=== PATIENT | male | born 1940 | race Caucasian/White ===

== ENCOUNTER 2018-04-15 15:36 | Outpatient (CLI) | payer MEDICARE | END 2018-04-15 15:37 | disposition home or self-care (01) | LOC: BICRAD 15:36 | PROVIDERS: ATTEND Internal Medicine Gastroenterology | DX: R63.4 Abnormal weight loss (principal); R05 Cough; R13.10 Dysphagia, unspecified; R91.1 Solitary pulmonary nodule | CPT/HCPCS: 71046 ==

== ENCOUNTER 2018-04-19 08:14 | Outpatient (CLI) | payer MEDICARE ==
--- NOTE | 2018-04-19 10:16 | RAD ---
PROCEDURE BARIUM SWALLOW: COMPARISON: CTA chest 08/15/16. HISTORY: Difficulty swallowing and sensation of food betting stuck. EXPOSURE: 3.2 minutes of fluoroscopic time and 7.248 uGy^cm2. FINDINGS: A double-contrast barium swallow is performed with air and barium. A esl professor radiograph is performed s howing a nodular opacity projecting over the mid portion of the right thorax. This is stable compare d to the nodular opacity seen on prior CT. The patient is status post CABG. A pacemaker is seen wit h its leads in the right atrium and ventricle. Esophageal mobility is delayed with multiple tertiary contractions consistent with presbyesophagus. No esophageal stricture is seen. A 13 mm barium tablet was given to the patient. This transiently h sara up in the lower esophagus but eventually passed with multiple sips of water. No gastroesophageal reflux was seen during the examination. No hiatal hernia is present. IMPRESSION: 1. Presbyesophagus. 2. Stable nodular opacity projecting over the right thorax. POS: [facility]
== END 2018-04-19 08:15 | disposition home or self-care (01) ==
LOC: RAD 08:14
PROVIDERS: ATTEND Internal Medicine Gastroenterology
DX: R13.10 Dysphagia, unspecified (principal); R05 Cough; R63.4 Abnormal weight loss; K22.8 Other specified diseases of esophagus; R91.8 Other nonspecific abnormal finding of lung field
CPT/HCPCS: 74220

== ENCOUNTER 2018-05-12 10:17 | Day surgery (SDC) | payer MEDICARE ==
[2018-05-11 10:53] VITALS: BMI 17.3
[2018-05-12] MEDS ORDERED: PROPOFOL 200 MG/20 ML VIAL ONE (13:23)
--- NOTE | 2018-05-12 21:30 | OP ---
DATE OF OPERATION: 05/12/2018 PREPROCEDURE DIAGNOSES: Dysphagia, cervical, solids greater than liquids with 20 pound weight loss, esophagram nondiagnostic. Chest x-ray showed a mass in the lung which has been followed for several years which was felt to be benign. He has an AICD in place. He has seen Cardiology and had clearanc e for this procedure. POSTOPERATIVE DIAGNOSES: 1. He has a mass in his throat that seemingly arising from the vallecula and epiglottis and extendin g down to the vocal cords. 2. This was not biopsied secondary to concern for airway compromise. 3. Normal esophagus. 4. Normal stomach and duodenum. RECOMMENDATIONS: ENT evaluation MEAGHAN. Offered the patient a PEG tube placement for procedure secondary to weight loss, but he refused. He will likely end up needing a PEG tube for therapy of this. We will wait until he talks to ENT and ge ts a diagnosis made and treatment plan outlined. ANESTHESIA: TIVA. PROCEDURE IN DETAIL: After the patient was informed of the risks, benefits and possible complication s of endoscopy including perforation, bleeding, reactions to medication and aspiration, informed cons ent was obtained. The patient was brought to the endoscopy suite where he was sedated in a gradual f ashion. Once he was comfortable, a bite block was placed in the incisural orifice. The neck exam wa s examined and no adenopathy was found on the anterior, posterior cervical chains, supraclavicular ar eas or submental or mandibular nodes. The endoscope was then advanced through the bite block and the n into the throat, irregular appearance to the epiglottis was seen. This was passed in the upper eso phagus, was evaluated which was normal as was the middle of the distal and the stomach, there was a s mall hiatal hernia. On retroflexed views, duodenum was normal. The scope was removed. Attention wa s turned to the pharyngeal area, there seemed to be a mass here involving the vocal cords, epiglottis and the piriform sinus. It is difficult to tell which side, I think that would be the right. The s cope was removed and an appointment will be made with ENT before he leaves the hospital today.
== END 2018-05-12 16:30 | disposition home or self-care (01) ==
LOC: SDC 10:17
PROVIDERS: ATTEND Internal Medicine Gastroenterology
PROC: 0DJ08ZZ Inspection of Upper Intestinal Tract, Via Natural or Artificial Opening Endoscopic (ICD-10-PCS; principal; 2018-05-12)
DX: J39.2 Other diseases of pharynx (principal); F17.200 Nicotine dependence, unspecified, uncomplicated; Z88.5 Allergy status to narcotic agent; Z79.899 Other long term (current) drug therapy; Z79.82 Long term (current) use of aspirin; Z88.8 Allergy status to other drugs, medicaments and biological substances
CPT/HCPCS: J2704

== ENCOUNTER 2018-06-03 11:31 | Outpatient (CLI) | payer MEDICARE ==
--- NOTE | 2018-06-03 14:34 | PET ---
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 COMPARISON: 09/15/15. TECHNIQUE: IV injection F-18 Fluorodeoxyglucose (FDG) dose: 11.1 mCi PET and attenuation-correction CT performed from skull base to proximal thighs. FINDINGS: SUV (standard uptake value) numbers given are maximum SUV's: There were hypermetabolic lymph nodes in various areas in 2015. Now, those have resolved, and there a re different areas of hypermetabolic lymph nodes. An approximately 1.5 x 1.5 cm left axillary lymph node with SUV of 3.7. Conglomeration of matted right cervical lymph nodes, Levels III and possibly IV, anterior to the righ t internal jugular vein, with SUV of 13.1. Moderately large, diffuse, infiltrative soft tissue mass throughout the entire supraglottic larynx wi th SUV of 12.8, representing the primary neoplasm site. No hypermetabolic activity identified within the thoracic cavity. No FDG-avid retroperitoneal lymph n odes. Abutting the anterior aspect of the left anterior acetabulum, there is an approximately 2 x 1.5 cm ex ternal iliac chain lymph node with SUV of 4.3. Slightly posterior to that, abutting the medial edge of the left anterior acetabulum, there is a smal ler left iliac chain lymph node, abutting the anterior edge of the left obturator internus muscle, wi th SUV of 6.0. There is a 3.5 cm infrarenal fusiform abdominal aortic aneurysm. There is a suture line around a loop of bowel, probably hepatic flexure of colon, in the right side o f the abdominal cavity. There is increased FDG uptake in that area, SUV of 5.6. Contiguous with this, there is also increased uptake throughout the transverse colon, SUV 4.9. It is uncertain whether or not these represent malignant activity. Recommend correlation with results of colonoscopy. IMPRESSION: 1. Very FDG-avid large supraglottic primary malignant neoplastic tumor, presumably squamous cell car cinoma. 2. Malignant right cervical lymphadenopathy at Level III. 3. Left axillary lymphadenopathy. 4. Two hypermetabolic left external iliac chain lymph nodes. 5. FDG avidity in the ascending colon and transverse colon, nonspecific. Recommend correlation with results of colonoscopy. 6. Infrarenal abdominal aortic aneurysm. JN R POS: [facility]
== END 2018-06-03 11:32 | disposition home or self-care (01) ==
LOC: PET 11:31
PROVIDERS: ATTEND Internal Medicine Hematology & Oncology
DX: C76.0 Malignant neoplasm of head, face and neck (principal); C32.1 Malignant neoplasm of supraglottis; R59.0 Localized enlarged lymph nodes; I71.4 Abdominal aortic aneurysm, without rupture
CPT/HCPCS: 78815; A9552

== ENCOUNTER 2018-06-11 11:29 | Observation (INO) | payer MEDICARE ==
[2018-06-10 15:08] VITALS: BMI 18.3
[2018-06-11] MEDS ORDERED: Bupivacaine/Epinephrine 0.25% 30 ML VIAL ONE (12:43)
[2018-06-11] MEDS ORDERED: Lidocaine 2% 10 ML INJ ONE (12:43)
[2018-06-11] MEDS ORDERED: CEFAZOLIN/Water 2 GM/20 ML SYRINGE ONE (13:00)
[2018-06-11] MEDS ORDERED: Fentanyl 100 MCG/2 ML VIAL ONE (13:12)
[2018-06-11] MEDS ORDERED: Morphine Sulfate 2 MG/ML SYRINGE SLOW IVP PRN (14:03)
[2018-06-11] MEDS ORDERED: Ondansetron HCl/PF 4 MG/2 ML Vial IVP PRN ×2 (14:03→15:46)
[2018-06-11] MEDS ORDERED: Promethazine HCl 25 MG/ML VIAL SLOW IVP PRN (14:03)
[2018-06-11] MEDS ORDERED: Promethazine HCl 25 MG/ML VIAL IM PRN ×2 (14:03→15:46)
[2018-06-11] MEDS ORDERED: Morphine 4 MG/ML VIAL ONE (14:26)
[2018-06-11] MEDS ORDERED: PROPOFOL 200 MG/20 ML VIAL ONE (14:34)
--- NOTE | 2018-06-11 14:45 | RAD ---
CHEST 1 VIEW: HISTORY: MediPort insertion. COMPARISON: Radiograph 04/23/18. FINDINGS: Mildly increased interstitial markings and edema. Port catheter is in place without complication wit h tip in good position. Calcified granuloma right mid lung. IMPRESSION: Uncomplicated placement of port catheter. POS: [facility]
[2018-06-11] MEDS ORDERED: hydrALAZINE 20 MG/ML VIAL SLOW IVP PRN (15:46)
[2018-06-11] MEDS ORDERED: Dextrose 50% Abboject 50 ML SYRINGE SLOW IVP PRN (15:46)
[2018-06-11] MEDS ORDERED: HYDROcodone/Acetaminophen 10/325 mg Tablet PO PRN (15:46)
[2018-06-11] MEDS ORDERED: Dextrose 5% in Water 1,000 ML IV PRN (15:46)
[2018-06-11] MEDS ORDERED: Lisinopril 20 MG TAB PO SCH (16:45)
[2018-06-11] MEDS: Lactated Ringer's 1,000 ML IV SCH (16:49)
[2018-06-11] MEDS: Carvedilol 25 MG TAB PO SCH (16:50)
[2018-06-11] MEDS ORDERED: Carvedilol 3.125 MG TAB PO SCH (17:00)
[2018-06-11] MEDS: Hydrocodone-Acetamin 15 ML UDCUP PO PRN (18:17)
[2018-06-11] MEDS: Furosemide 20 MG TAB PO SCH (20:25)
[2018-06-11] MEDS: Famotidine 20 MG TAB PO SCH (20:25)
[2018-06-11] MEDS ORDERED: Pravastatin Sodium 40 MG TAB PO SCH (21:00)
[2018-06-11] MEDS: Famotidine/PF 20 mg/2ml Vial SLOW IVP SCH (21:34)
[2018-06-12] MEDS: Hydrocodone-Acetamin 15 ML UDCUP PO PRN (00:38)
[2018-06-12] MEDS: Lactated Ringer's 1,000 ML IV SCH (00:39)
[2018-06-12 07:52] VITALS: TEMP 97.6
[2018-06-12] MEDS: Famotidine 20 MG TAB PO SCH (08:07)
[2018-06-12] MEDS: Carvedilol 25 MG TAB PO SCH (08:07)
[2018-06-12] MEDS: Furosemide 20 MG TAB PO SCH (08:07)
[2018-06-12 08:08] VITALS: BP 180/75
[2018-06-12] MEDS: Famotidine/PF 20 mg/2ml Vial SLOW IVP SCH (08:08)
[2018-06-12] MEDS ORDERED: Lisinopril 20 MG TAB PO SCH (09:00)
[2018-06-12] MEDS ORDERED: Potassium Chloride 20 MEQ TAB PO SCH (09:00)
--- NOTE | 2018-06-12 13:01 | DIS ---
DATE OF ADMISSION: 06/11/2018 DATE OF DISCHARGE: 06/12/2018 ADMITTING DIAGNOSES: Head and neck cancer, protein-calorie malnutrition. PROCEDURES: MediPort and PEG tube by Dr. Miranda without complication. CONDITION AT DISCHARGE: Improved. STAFF: Dr. Robin Miranda DISPOSITION: Home. Prescription for Zofran sent to [facility] on . HOSPITAL COURSE: On postop day 1, the patient is doing well. His PEG tube was loosened. Instructio ns were given to the and him. He is discharged home to follow up with me in 2 weeks.
--- NOTE | 2018-06-14 15:37 | OP ---
DATE OF PROCEDURE: 06/11/2018 PREOPERATIVE DIAGNOSES: Head and neck cancer, protein calorie malnutrition. POSTOPERATIVE DIAGNOSES: Head and neck cancer, protein calorie malnutrition. PROCEDURE: 1. Tunnel ____ subcutaneous port (MediPort). 2. Percutaneous endoscopic gastrostomy tube (PEG tube) with EGD guidance. SURGEON: Dr. Robin Miranda ANESTHESIA: General. ESTIMATED BLOOD LOSS: Minimal. COMPLICATIONS: None. SPECIMEN: None. TECHNIQUE: The patient was taken to the operating room, placed supine on the table. After general a nesthetic was obtained, EGD scope was passed into the esophagus, stomach to the level of duodenum wit hout obstruction or pathology. There was no resistance to passage in the oropharynx where his known cancer was. A skin wheal was raised in the left upper quadrant after the stomach was fully inflated, the light from the EGD scope can be seen through the skin. Introducer needle is placed through a 1 cm incision made in the left upper quadrant into the stomach, a wire was passed. The wire snared fro m the scope brought out through the mouth, connected to the PEG. The PEG is pulled from the orophary nx, esophagus, stomach out this small incision. It is held to the abdominal wall using closed connec tor. It is cut and the [employer] adaptor was placed. Antibiotic ointment placed around the exi t site as well as sterile dressings. The bilateral neck and chest is prepped and draped in a sterile fashion. Local anesthetic infiltrate d over the right internal jugular vein. Internal jugular vein came using a 20 gauge finder needle fo llowed by a Seldinger needle. Wire was passed into the superior vena cava under fluoroscopic guidanc e. A small meño was made at the wire site a separate 3-cm incision was made in the right upper chest . Subcutaneous pocket made below the lower incision. Tubing for the MediPort tunneled from the infe rior to superior incision and sheath was placed over the wire into the vena cava under fluoroscopy gu idajared. Dilator and wire removed. The EndoCatch straight into the sheath and the sheath is peeled a way. The tip of the catheter is at the atriocaval junction. MediPort tubing is cut to fit the MediP ort at the lower incision, connected to the MediPort which was sewn to the chest wall in the subcutan eous pocket using Prolene. MediPort flushes and draws blood without difficulties flushed with a hepa rin flush. The wounds are irrigated and closed using 3-0 Vicryl, 4-0 Monocryl, and Dermabond. The p atient went to recovery in stable condition. All instrument counts, needle counts, lap counts are co rrect.
== END 2018-06-12 12:00 | disposition home or self-care (01) ==
LOC: SDC 11:29 → SURG A 15:19
PROVIDERS: ADMIT Surgery; ATTEND Surgery
PROC: 0DH63UZ Insertion of Feeding Device into Stomach, Percutaneous Approach (ICD-10-PCS; principal; 2018-06-11)
PROC: 0JH63WZ Insertion of Totally Implantable Vascular Access Device into Chest Subcutaneous Tissue and Fascia, Percutaneous Approach (ICD-10-PCS; 2018-06-11)
DX: E46 Unspecified protein-calorie malnutrition (principal); C76.0 Malignant neoplasm of head, face and neck; Z68.1 Body mass index [BMI] 19.9 or less, adult; Z79.82 Long term (current) use of aspirin; Z79.899 Other long term (current) drug therapy; Z88.8 Allergy status to other drugs, medicaments and biological substances
CPT/HCPCS: 36561; 43246; 71045; 77386 ×4; 80053; 82248; 83615; 83735; 84100; 84550; 96374 ×2; C1788; G0378; J1642; J2270; J2704; J3010

== ENCOUNTER 2018-09-07 13:04 | Outpatient (CLI) | payer MEDICARE ==
--- NOTE | 2018-09-08 10:52 | PET ---
PET CT FROM APEX OF SKULL THROUGH MID THIGH: COMPARISON: 06/03/18. HISTORY: Malignant neoplasm of the supraglottis. TECHNIQUE: A PET CT was performed from the apex of skull through the mid thigh after administration of 11.6 mCi F18-FDG. FINDINGS: The previously seen hypermetabolic activity in the supraglottic airway has decreased. The max SUV perico ue is now 4.3. The previously seen hypermetabolic activity in the right aspect of the neck which represented metasta tic adenopathy is no longer present. No enlarged lymph nodes are seen in either side of the neck on t he limited noncontrast examination. A new right-sided MediPort is seen with its tip in the superior vena cava. Calcifications are seen in the carotid arteries. No hypermetabolic activity is seen in either axilla. There is a hypermetabolic left pelvic lymph node near the internal inguinal ring with a maximum SUV value of 2.9. Previously, there were two hypermet abolic enlarged left pelvic lymph nodes. There is a stable right lung mass which does not demonstrate hypermetabolic activity. No suspicious areas of hypermetabolic activity are seen within the chest. No suspicious areas of hyp ermetabolic activity other the left pelvic lymph node are seen within the abdomen or pelvis. No suspi cious areas of hypermetabolic activity are seen within the skeleton. IMPRESSION: Improvement in response of malignancy with continued areas of hypermetabolic activity. These areas in clude the supraglottic airway and a left pelvic lymph node. POS: [facility]
== END 2018-09-07 13:05 | disposition home or self-care (01) ==
LOC: PET 13:04
PROVIDERS: ATTEND Internal Medicine Hematology & Oncology
DX: C32.1 Malignant neoplasm of supraglottis (principal)
CPT/HCPCS: 78815; A9552

== ENCOUNTER 2018-09-29 12:25 | Day surgery (SDC) | payer MEDICARE ==
[2018-09-24 11:42] VITALS: BMI 18.5
[2018-09-29 13:57] LABS: Hemoglobin 14.9 g/dL (14.0-18.0); Mean Corpuscular HGB CONC 33.9 g/dL (32.0-36.0); Mean Corpuscular Volume 94.5 fL (78.0-98.0); Platelet Count 127 thou/uL (130-400); RBC Distribution Width 13.8 % (11.5-14.5); Red Blood Cell (RBC) Count 4.65 mill/uL (4.70-6.10); White Blood Cell (WBC) Count 6.7 thou/uL (4.8-10.8)
[2018-09-29] MEDS ORDERED: CEFAZOLIN 2 GM/50 ML BAG ONE (13:59)
[2018-09-29 14:04] LABS: Anion Gap 12 mmol/L (10-20); BUN (Urea Nitrogen) 31 mg/dL (8.4-25.7); Calc. Creatinine Clearance 53 mL/min (70-130); Calcium 9.4 mg/dL (7.8-10.44); Carbon Dioxide 25 mmol/L (23-31); Chloride 103 mmol/L (98-107); Estimated GFR-MDRD 79; Glucose 79 mg/dL (83-110); Potassium 4.3 mmol/L (3.5-5.1); Sodium 136 mmol/L (136-145)
[2018-09-29 14:15] LABS: Band 3 % (5-11); Eosinophils 1 % (0-10); Lymphocytes 6 % (21-51); MDiff Complete? YES; Metamyelocyte 1 % (0-0); Monocytes 3 % (0-10); Neutrophil 85 % (42-75); PLT Morphology Comment Appears Decreased; Reactive Lymphocytes 1 % (0-10)
[2018-09-29] MEDS ORDERED: Fentanyl 100 MCG/2 ML VIAL ONE ×2 (15:23→15:32)
[2018-09-29] MEDS ORDERED: Bupivacaine PF 0.5% 30 ML VIAL ONE ×2 (15:24→15:33)
[2018-09-29] MEDS ORDERED: Bupivacaine/Epinephrine 0.25% 30 ML VIAL ONE (15:24)
[2018-09-29] MEDS ORDERED: Lidocaine 2% PF 5 ML VIAL ONE (15:24)
[2018-09-29] MEDS ORDERED: Morphine 4 MG/ML VIAL ONE (15:53)
[2018-09-29] MEDS ORDERED: PHENYLEPHRINE-NS 100 MCG/ML 10 ML SYRINGE ONE (18:37)
[2018-09-29] MEDS ORDERED: Ondansetron PF 4 MG/2 ML Vial ONE (18:37)
[2018-09-29] MEDS ORDERED: PROPOFOL 200 MG/20 ML VIAL ONE (18:37)
[2018-09-29] MEDS ORDERED: Dexamethasone 20 MG/5 ML VIAL ONE (18:37)
[2018-09-29] MEDS ORDERED: ePHEDrine/0.9% NaCl/PF SYRINGE 50 mg/10 ml ONE (18:37)
--- NOTE | 2018-09-30 14:25 | OP ---
DATE OF PROCEDURE: 09/29/2018 PREOPERATIVE DIAGNOSIS: Left inguinal hernia. POSTOPERATIVE DIAGNOSIS: Left inguinal hernia. PROCEDURES PERFORMED: 1. Left inguinal hernia repair with mesh, PHS extended. 2. Removal of tunneled central line with subcutaneous port (MediPort). ANESTHESIA: General. ESTIMATED BLOOD LOSS: Minimal. COMPLICATIONS: None. TECHNIQUE: The patient was taken to the operating room and laid supine on the operating room table. After general anesthetic was obtained, the left groin and abdomen were shaved, prepped, and draped in a sterile fashion. Oblique incision was made above the pubic tubercle and the left abdomen. Cautery was dissected down through the Moise's fascia to expose the external oblique. External oblique fibers were opened along the course of the external ring. Contents on the inguinal canal were dissected from the backside of the external oblique. Cord structures were mobilized on the pubic tubercle using a Billy drain. Dissection superiorly and medially on the cord showed there to be an indirect hernia sac. A high ligation of the indirect hernia sac was performed using a silk suture. The ilioinguinal nerve was found and segmentally removed to prevent postop pain. The PHS extended mesh was brought into the sterile field. The underlay was placed in the preperitoneal space. Its fiber was laid out flat against the posterior abdominal wall. The overlay was laid in the floor of the inguinal canal. The overlay was cut laterally to incorporate the internal ring. The overlay was sewn distally to the pubic tubercle, medially to the transverse arch, laterally to the shelving edge of inguinal ligament to reform these structures. The two ends of cut mesh were used to reform the internal ring at the level of the internal ring. The extra mesh was tacked back into the external oblique proximally. The wound was irrigated. Local anesthetic was applied. Tunnelled catheter for postop pain control started from above the incision, left on top of the mesh. External oblique and Moise's were closed using 3-0 Vicryl. Skin was closed using 4-0 Monocryl and Dermabond. Next, the previous MediPort incision in the right upper chest was reopened and the cautery was used to dissect the MediPort off the chest wall. The MediPort was removed in its entirety. This tunnel going up to the neck was oversewn using Vicryl suture. The skin incision was then closed using 3-0 Vicryl, 4-0 Monocryl, and Dermabond. The patient was sent to Recovery in stable condition. All instrument counts, needle counts, and lap counts were correct. Job ID: [id number]
== END 2018-09-29 18:35 | disposition home or self-care (01) ==
LOC: SDC 12:25
PROVIDERS: ATTEND Surgery
PROC: 0YU60JZ Supplement Left Inguinal Region with Synthetic Substitute, Open Approach (ICD-10-PCS; principal; 2018-09-29)
PROC: 0JPT3WZ Removal of Totally Implantable Vascular Access Device from Trunk Subcutaneous Tissue and Fascia, Percutaneous Approach (ICD-10-PCS; 2018-09-29)
DX: K40.90 Unilateral inguinal hernia, without obstruction or gangrene, not specified as recurrent (principal); I10 Essential (primary) hypertension; E78.00 Pure hypercholesterolemia, unspecified; Z79.82 Long term (current) use of aspirin; Z79.899 Other long term (current) drug therapy; Z88.8 Allergy status to other drugs, medicaments and biological substances; Z85.89 Personal history of malignant neoplasm of other organs and systems; Z90.49 Acquired absence of other specified parts of digestive tract; Z95.1 Presence of aortocoronary bypass graft; Z95.5 Presence of coronary angioplasty implant and graft
CPT/HCPCS: 36590; 49505; 80048; 85025; A4306; C1781; 36415; J0131; J1100; J2001; J2270; J2405; J2704; J3010; S0020

== ENCOUNTER 2019-04-21 10:08 | Outpatient (CLI) | payer MEDICARE ==
--- NOTE | 2019-04-21 15:41 | PET ---
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 Pulmonary nodules. TECHNIQUE: PET scanning with CT attenuation correction was performed from the vertex through the pro ximal thighs following the intravenous administration of 12.2 mCi F18-FDG in the right antecubital fo ssa. COMPARISON: PET CT dated 09/07/18. CORRELATION: CT neck and chest of 04/05/19 from [facility]. FINDINGS: The mass at the level of the epiglottis noted on CT scan demonstrates increased FDG localization with a SUV of 16.1. The enlarged right Level III lymph node demonstrates hypermetabolic activity with a S UV of 8.1. There is hypermetabolic activity in the left lower lobe lung mass noted on the CT scan with a SUV of 13.1. No abnormal FDG localization is seen in the right lung nodule. There is continued FDG localization in the left pelvic lymph node near the internal inguinal ring wit h a current SUV of 6.4 (previously 2.9). In the anterior aspect of the left mid thigh, there is a focal area of increased FDG localization wit h a SUV of 2.5. No hypermetabolic liver, adrenal, or skeletal lesions are seen. There is physiologic activity in the GI and tracts, and brain. The CT scan used for attenuation correction demonstrates no evidence of pleural effusions or ascites. IMPRESSION: Interval worsening since PET scan of 09/07/18. POS: [facility]
== END 2019-04-21 10:09 | disposition home or self-care (01) ==
LOC: PET 10:08
PROVIDERS: ATTEND Internal Medicine Hematology & Oncology
DX: C32.9 Malignant neoplasm of larynx, unspecified (principal); R91.8 Other nonspecific abnormal finding of lung field
CPT/HCPCS: 78815; A9552

== ENCOUNTER 2019-06-16 11:49 | Outpatient (CLI) | payer MEDICARE ==
--- NOTE | 2019-06-16 14:18 | RAD ---
2 VIEWS CHEST: Date: 06/16/19 COMPARISON: 04/23/18. HISTORY: Malignant neoplasm of the supraglottis. Cough. Congestion. Shortness of breath. FINDINGS: Stable sternotomy wires and left-sided defibrillator. Normal cardiac silhouette. Pulmonary vessels ar e within normal limits. Costophrenic angles demonstrate stable blunting. Hyperinflation with chronic changes. Redemonstration of a nodular in the right mid lung, measuring 1.9 cm (previously measuring 1 .5 cm). There is no pneumothorax or acute osseous abnormality. There does appear to be a density proj ecting along the left paraspinal region, supradiaphragmatic in location. On the lateral projection, t his may represent a mass noted in the left lower lobe. Possible mass measures approximately 4.0 cm. T here is a corresponding mass noted on CT used for attenuation correction on 04/21/19. IMPRESSION: 1. Hyperinflation. Chronic changes. 2. Right mid lung and left lower lobe mass. POS: [facility]
== END 2019-06-16 11:50 | disposition home or self-care (01) ==
LOC: BICRAD 11:49
PROVIDERS: ATTEND Internal Medicine Hematology & Oncology
DX: C32.1 Malignant neoplasm of supraglottis (principal); R91.8 Other nonspecific abnormal finding of lung field
CPT/HCPCS: 71046

== ENCOUNTER 2019-08-25 10:32 | Outpatient (CLI) | payer MEDICARE ==
--- NOTE | 2019-08-25 13:25 | PET ---
PET CT HISTORY: History of malignant neoplasm of the supraglottis. TECHNIQUE: PET scanning with CT attenuation correction was performed from the vertex of the brain to the proxima l thighs following the intravenous administration of 11.9 millicuries [id number]. COMPARISON: Prior PET CT dated 04/21/[address] thorax dated 07/06/2019. FINDINGS: Biodistribution: The biodistribution for the exam appears acceptable. Head and neck: There is appropriate background activity within the brain. The hypermetabolic supraglo ttic lesion demonstrates diminished hypermetabolic uptake with a peak SUV value of 8.2 and a mean value of 6.68. Peak uptake on the most prior PET CT was 12.04 with a mean uptake of 9.9. The enlarged right level III lymph node demonstrates slight increased hypermetabolic activity now measuring 8.37 with a mean activity 7.2. Previously peak activity was 6.85 with a mean activity of 3.32. The le judy III lymph node has increased in size now measuring 3.8 cm where previously it measured 2.7 cm. The supraglottic mass is poorly defined due to loss of the fat planes from prior radiation therapy an d difficult to measure. There is a tracheostomy in place with mild hypermetabolic activity surrounding the tracheostomy site which is likely reactive in nature. Thorax: The hypermetabolic medial left lower lobe lung mass is relatively stable to the most recent C T evaluation but enlarged from the prior PET scan. Peak activity associated with this lesion is relatively stable measuring 10.17 where previously it was 10.54. The mean activity was 7.5 with a liborio or mean activity of 7.37. The right upper lobe pulmonary nodule is unchanged in size with no associated hypermetabolic uptake. There is scattered emphysema. No hypermetabolic lymphadenopathy is evident. Abdomen and pelvis: There is expected background activity within the GI and systems.Previously see n hypermetabolic activity seen within the left inguinal canal is no longer demonstrated. There is a stable infrarenal abdominal aortic aneurysm. Osseous structures and skin: There is diffuse anasarca. No definite hypermetabolic skin or osseous le marivel is identified. IMPRESSION: 1. Abnormal PET CT. 2. Findings of mixed response to therapy. There is slightly diminished hypermetabolic uptake involvin g the supraglottic neck mass. The right level III lymph node has slightly enlarged with increased hypermetabolic uptake. The left lower lobe pulmonary metastatic lesion is slightly enlarged with rela tively stable hypermetabolic uptake. 3. The previously seen focus of hypermetabolic activity within the left inguinal region is no longer demonstrated. 4. Mild hypermetabolic activity surrounding the tracheostomy site is likely reactive in nature. Transcribed Date/Time: 08/25/2019 1:41 PM
== END 2019-08-25 10:33 | disposition home or self-care (01) ==
LOC: PET 10:32
PROVIDERS: ATTEND Internal Medicine Hematology & Oncology
DX: C32.1 Malignant neoplasm of supraglottis (principal); C78.02 Secondary malignant neoplasm of left lung; R59.0 Localized enlarged lymph nodes; R93.89 Abnormal findings on diagnostic imaging of other specified body structures; Z93.0 Tracheostomy status
CPT/HCPCS: 78815; 80053; 82248; 83615; 84100; 84436; 84443; 84550; A9552

== ENCOUNTER 2019-10-21 23:18 | Inpatient (IN) | payer MEDICARE ==
[2019-10-22] MEDS ORDERED: Loperamide HCl 2 MG CAP PO PRN ×2 (03:48→10:08)
[2019-10-22] MEDS ORDERED: Ondansetron ODT 4 MG TAB PO PRN (10:08)
[2019-10-22] MEDS ORDERED: Guaifenesin DM 100-10/5 ML UDCUP PO PRN (10:08)
[2019-10-22] MEDS ORDERED: Acetaminophen 500 MG TAB PO PRN (10:08)
[2019-10-22] MEDS ORDERED: Ondansetron PF 4 MG/2 ML Vial IVP PRN (10:08)
[2019-10-22] MEDS ORDERED: hydrALAZINE 20 MG/ML VIAL SLOW IVP PRN (10:08)
[2019-10-22] MEDS: Scopolamine 1.5 mg/72 hour Patch TD SCH (11:04)
--- NOTE | 2019-10-22 11:47 | HP ---
PRIMARY CARE PROVIDER: Misti Wilcox DO PRIMARY ANTIQUER: Vincent Ohara MD PRIMARY MEDICAL ONCOLOGIST: Inna Colvin MD PRIMARY ENT: Domenico Almonte MD PRIMARY APPLICATION INTEGRATION ENGINEER: Wes Venegas MD CHIEF COMPLAINT: Shortness of breath. 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 The patient also status post tracheostomy placement due to the throat cancer managed by his at home with daily suctioning and general trach care. The tracheostomy was placed in June of 2019 per 's report and had been receiving Home Health Services to assist with tracheostomy management. The reports she is now with a primary care provider for and has noticed increased secretions that are difficult to manage at home. The patient has had increased shortness of breath, purulent secretions from the tracheostomy site, and worsening respiratory distress. became concerned when the patient continued to cough and was unable to control his secretions, presenting to the emergency room for evaluation. No specific documented fever, travel history, or recent exposures. The patient has not been on antibiotic therapy per 's report. does report of increased loose stools with diarrhea in the last 24 to 48 hours. No reported blood or melena. The patient is not on home oxygen per report, but was evaluated prior to discharge in the fall. The patient does use a scopolamine patch to assist with the secretions. However, the reports this has been unsuccessful in managing the secretions. In the emergency room, the patient underwent general evaluation, receiving IV Lasix, cefepime, and bronchodilator therapy with chest imaging showing no acute infiltrate with chronic changes noted. The patient was placed on a trach collar with oxygen supplementation with O2 saturations in the upper 90% range on trach collar. PAST MEDICAL HISTORY: 1. Coronary artery disease, status post coronary artery bypass grafting x3 vessels. 2. Status post pacemaker placement. 3. Peripheral vascular disease with total occlusion of the iliac arteries. 4. Hypertension. 5. Hyperlipidemia. 6. Hypothyroidism. 7. Chronic systolic congestive heart failure with ejection fraction of 25% to 30%. 8. History of myocardial infarction. 9. Throat cancer with metastasis to the lungs and liver on current Keytruda. 10. History of colon cancer. PAST SURGICAL HISTORY: 1. Status post ileostomy with reversal. 2. Status post coronary artery bypass grafting x3 vessels, 20 years prior to this evaluation. 3. Status post vocal cord surgery secondary to throat cancer. 4. Status post tracheostomy placement in June 2019. 5. Status post pacemaker insertion. CURRENT MEDICATIONS: 1. Enteric-coated aspirin 81 mg p.o. daily. 2. Isosorbide mononitrate 30 mg p.o. q.a.m. 3. Levothyroxine 175 mcg p.o. daily. 4. Keytruda every 21 days. 5. Potassium chloride 10 mEq p.o. daily. 6. Scopolamine patch one patch transdermally q.72 hours. 7. Lasix 20 mg p.o. daily. 8. Entresto 49/51 mg 1 tablet p.o. b.i.d. 9. Spironolactone 25 mg p.o. daily. ALLERGIES: LIPITOR AND FENTANYL. FAMILY HISTORY: Father at 47 years of age. Mother at 83 years of age. SOCIAL HISTORY: Resides in [place], [place]. Accompanied by his in the hospital. 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 Occasional alcohol use. Previous smoking up to 1 pack of cigarettes daily, none currently. No illicit drug use. REVIEW OF SYSTEMS: CONSTITUTIONAL: Negative for weight loss or gain, ability to conduct usual activities. SKIN: Negative for rash, itching. EYES: Negative for double vision, pain. ENT/MOUTH: Negative for nose bleeding, neck stiffness, pain, tenderness. CARDIOVASCULAR: Negative for palpitations, dyspnea on exertion, orthopnea. RESPIRATORY: Negative for shortness of breath, wheezing, cough, hemoptysis, fever or night sweats. GASTROINTESTINAL: Negative for poor appetite, abdominal pain, heartburn, nausea, vomiting, constipation, or diarrhea. GENITOURINARY: Negative for urgency, frequency, dysuria, nocturia. MUSCULOSKELETAL: Negative for pain, swelling. NEUROLOGIC/PSYCHIATRIC: Negative for anxiety, depression. ALLERGY/IMMUNOLOGIC: Negative for skin rash, bleeding tendency. Otherwise, negative except as stated per HPI. PHYSICAL EXAMINATION: VITAL SIGNS: On admission, blood pressure 129/60, pulse 62, respiratory rate 16 to 20, temperature 98.3 degrees Fahrenheit, and O2 saturation is 97% on trach collar at 6 L/minute. GENERAL APPEARANCE: This is a 79-year-old male, ill appearing, alert, in moderate respiratory distress. HEENT: Pupils are equal, round, and reactive to light and accommodation. Extraocular muscles are intact. No scleral icterus. No conjunctival injection. Nares are patent. OP is clear. Oral mucosa dry. NECK: Supple. Tracheostomy site intact with copious secretions noted. No peripheral edema or erythema noted. NECK: Supple. No cervical adenopathy. No thyromegaly. No carotid bruits. CHEST: Coarse rhonchi bilaterally in all lung thomas. CARDIOVASCULAR: S1 and S2 with distant heart sounds. ABDOMEN: Flat, soft, nontender, and nondistended. Bowel sounds are positive in all 4 quadrants. There is no palpable mass. No rebound or guarding appreciated. EXTREMITIES: Warm and dry with fair turgor. No clubbing, cyanosis, or asymmetric edema appreciated. Generalized muscle atrophy noted. NEUROLOGIC: Cranial nerves II through XII are grossly intact. No focal or lateralizing signs appreciated. The patient not observed ambulatory during this exam. PERTINENT LABORATORY AND X-RAY FINDINGS: Basic metabolic profile within normal limits. Lactic acid level 1.6. Calcium 9.1. LFTs within normal limits. BNP 948, previously noted 1987 on 07/06/2019. TSH 7.0 on 10/10/2019. CBC showed a white blood cell count of 6.2, hemoglobin 11, hematocrit 35, and platelet count 237 with 82% neutrophilia. Influenza A and B antigen dated 10/21/2019, negative. Blood cultures x2 dated 10/21/2019, showed no growth to date. Telemetry monitoring dated 10/21/2019, shows AV pacing with heart rates in the 70s to 80s. ASSESSMENT AND PLAN: 1. Acute on chronic hypoxic respiratory failure. Multifactorial process. Concern for infectious etiology given chronic tracheostomy. We will continue oxygen supplementation with trach collar to maintain O2 saturations greater than or equal to 90%. Continue empiric antibiotic coverage with cefepime 2 g IV q.12 hours with additional Levaquin 750 mg IV q.24 hours. Respiratory culture pending. Bronchodilator therapy with DuoNeb. 2. Acute on chronic systolic congestive heart failure exacerbation. We will continue Lasix 40 mg IV b.i.d. Repeat 2D transthoracic echocardiogram for ejection fraction assessment. Daily weights and I's and O's. 3. Metastatic throat cancer on Keytruda. We will continue supportive management as outlined previously. The patient to resume Keytruda on an outpatient basis. Review of electronic medical record shows a stage IV process. 4. Deconditioning. PT evaluation for functional assessment. General fall risk precautions. 5. Hypothyroidism. Resume levothyroxine 175 mcg daily. 6. Diarrhea. Check stool culture including Clostridium difficile antigen and toxin. Imodium p.r.n. 7. Prophylaxis. SCDs while in bed. Pepcid 20 mg p.o. b.i.d. General trach care. 8. Code status is full. Surrogate medical decision maker is the patient's spouse. Job ID: [id number]
[2019-10-22] MEDS: Cefepime 2 GM in Sodium Chloride 0.9% 100 ML IVPB SCH (13:21)
[2019-10-22] MEDS: Furosemide 40 MG/4 ML VIAL SLOW IVP SCH (14:13)
[2019-10-22] MEDS: Sacubitril 49 MG/Valsartan 51 MG TABLET PO SCH (20:10)
[2019-10-22] MEDS: Famotidine 20 MG TAB PO SCH (20:10)
[2019-10-23] MEDS: Cefepime 2 GM in Sodium Chloride 0.9% 100 ML IVPB SCH ×2 (01:03→13:15)
--- NOTE | 2019-10-23 01:36 | CON ---
DATE OF CONSULTATION: 10/22/2019 Please refer the notes already dictated by nurse practitioner, Filomena Souza. We have seen this and discussed this patient together. INDICATION FOR CONSULTATION: A 79-year-old gentleman with a history of cardiomyopathy. He has been followed by Dr. Ohara for several years. He has chronic systolic heart failure with a history also of coronary artery disease and bypass surgery 20 years ago. He has been doing relatively well from a cardiac standpoint. He has been placed on medications for his cardiomyopathy. He did have a repeat echocardiogram today, which again shows ejection fraction about 25% to 30%. He has hypertension, also dyslipidemia, and peripheral vascular disease. He was admitted today after he had increasing secretions and difficulty breathing associated with a tracheostomy tube that has been placed in the past. With his trach tube, he has had increased secretions, he had been at home, his has been doing the suctioning, but apparently recently has become more so than usual and she has been having a hard time just keeping up with secretions and he became more short of breath and was admitted to the hospital. His chest x-ray did not show any acute evidence of any pneumonia or any significant congestive heart failure at this time. He is feeling somewhat better. He has a tracheostomy mask on for oxygenation and for breathing, but otherwise he has had increased secretions and one can audibly hear the secretions that need to be suctioned on a frequent basis. His tracheostomy tube was placed after he had throat cancer, which I believe was due to vocal cords, and he also apparently has had some metastases to the lungs and liver and he has been treated recently with Keytruda and he has been monitored closely by Dr. Colvin. At this time, he denied any chest pain. His EKG shows a paced rhythm. He denied any other significant chest pain and mainly he was just complaining of shortness of breath, which is due to the increased secretions most likely. PAST MEDICAL HISTORY: Please refer to the notes already dictated by the nurse practitioner. SOCIAL HISTORY: Please refer to the notes already dictated by the nurse practitioner. FAMILY HISTORY: Please refer to the notes already dictated by the nurse practitioner. REVIEW OF SYSTEMS: Please refer to the notes already dictated by the nurse practitioner. MEDICATIONS: Please refer to the notes already dictated by the nurse practitioner. ALLERGIES: PLEASE REFER TO THE NOTES ALREADY DICTATED BY THE NURSE PRACTITIONER. PHYSICAL EXAMINATION: I reviewed the examination on this patient and would agree with the assessment and plan of the patient per the nurse practitioner. IMPRESSION: 1. Respiratory distress associated with increased secretions from his tracheostomy tube. He seems to be doing somewhat better. He appears to be comfortable. When he gets somewhat agitated, he does become more short of breath. He has been given a trach collar with some supplemental oxygen and appears to be doing better. His O2 saturations have remained more than 90%. He also was placed on antibiotics empirically. I do not see any indication that there is a significant pneumonia. I believe cultures were obtained and we will await for the results of this. 2. History of congestive heart failure. He has severe decrease in left ventricular systolic function. He has been treated with medical management. He underwent a repeat echocardiogram today, which shows no significant change in his ejection fraction. 3. Overall deconditioning. He is certainly very weak, but he did walk I believe today with physical therapy. 4. History of recent diarrhea due to his significant antibiotic use recently. I believe a culture is pending to rule out evidence of Clostridium difficile. We will be more than happy to continue to follow the patient with you, but overall cardiac status appears to be relatively stable at this time. Job ID: [id number]
[2019-10-23 05:16] LABS: Anion Gap 12 mmol/L (10-20); BUN (Urea Nitrogen) 16 mg/dL (8.4-25.7); Calc. Creatinine Clearance 45 mL/min (70-130); Calcium 8.9 mg/dL (7.8-10.44); Carbon Dioxide 24 mmol/L (23-31); Chloride 101 mmol/L (98-107); Estimated GFR-MDRD 77; Glucose 82 mg/dL (83-110); Sodium 133 mmol/L (136-145)
[2019-10-23 05:31] LABS: Band 13 % (5-11); Eosinophils 1 % (0-10); Hemoglobin 11.4 g/dL (14.0-18.0); Lymphocytes 14 % (21-51); MDiff Complete? YES; Mean Corpuscular HGB CONC 34.3 g/dL (32.0-36.0); Mean Corpuscular Hemoglobin 31.8 pg (27.0-31.0); Mean Corpuscular Volume 92.8 fL (78.0-98.0); Monocytes 6 % (0-10); Neutrophil 66 % (42-75); Platelet Count 215 thou/uL (130-400); Platelet Morphology Comment Appears Adequate; RBC Distribution Width 14.3 % (11.5-14.5); Red Blood Cell (RBC) Count 3.57 mill/uL (4.70-6.10); White Blood Cell (WBC) Count 4.3 thou/uL (4.8-10.8)
[2019-10-23] MEDS: Furosemide 40 MG/4 ML VIAL SLOW IVP SCH (06:10)
[2019-10-23] MEDS: Potassium Chloride 10 MEQ TAB PO SCH (08:50)
[2019-10-23] MEDS: Aspirin Chewable 81 MG TAB PO SCH (08:51)
[2019-10-23] MEDS: Sacubitril 49 MG/Valsartan 51 MG TABLET PO SCH (08:51)
[2019-10-23] MEDS: Levothyroxine 175 MCG TAB PO SCH (08:51)
[2019-10-23] MEDS: Famotidine 20 MG TAB PO SCH ×2 (08:51→22:47)
[2019-10-23] MEDS ORDERED: Spironolactone 25 MG TAB PO SCH (09:00)
[2019-10-23] MEDS ORDERED: Isosorbide Mononitrate (ER) 30 MG TAB PO SCH (09:00)
--- NOTE | 2019-10-23 11:13 | CON ---
DATE OF CONSULTATION: 10/23/2019 HISTORY OF PRESENT ILLNESS: Luis Whalen is a pleasant 79-year-old male, who has a tracheostomy. He presented with shortness of breath. His and he both state that they are feeling better. He is not currently smoking. His last cigarette was while he was driving in a car from Dr. Almonte's office over to the hospital to have a tracheostomy placed. He does have a cardiomyopathy showing an ejection fraction of 25% to 30%. PAST MEDICAL HISTORY: Remarkable for, 1. Hypertension. 2. Congestive heart failure. 3. Coronary artery disease. 4. History of coronary artery bypass grafting 20 years ago. 5. Metastatic head and neck cancer, on Keytruda. SOCIAL HISTORY: As mentioned, he is not smoking, not drinking. FAMILY HISTORY: Negative for lung disease in early age. REVIEW OF SYSTEMS: 10 point review of systems completed, otherwise, negative. His wanted to know if anything would work better, so that she would not have to suction him at night. She said Mucinex did not work. The scopolamine patch has helped a little bit. PHYSICAL EXAMINATION: GENERAL: Luis Whalen is a pleasant 79-year-old male, who has a tracheostomy. VITAL SIGNS: On exam, he is afebrile, heart rate is 58, respiratory rate is 18, oximetry is 98%, and blood pressure 100/58. HEENT: Pupils are equal. Sclerae are anicteric. NECK: Supple. Tracheostomy tube is in place. LUNGS: Remarkable for mild rhonchi bilaterally. HEART: Regular rhythm. S1 and S2 are normal. ABDOMEN: Soft and nontender. EXTREMITIES: Without clubbing, cyanosis, or edema. IMAGING STUDIES: Chest radiograph is remarkable for a 1.5 cm nodule in the right lung. There is no pulmonary edema. IMPRESSION: 1. Probable chronic obstructive pulmonary disease with a long history of smoking. 2. Pulmonary nodule ? related to his primary malignancy. 3. Status post tracheostomy. 4. Deconditioning, since his tracheostomy. PLAN: He was given physical therapy 3 times a week, but does not do any exercise now. I encouraged him to start trying to work back up to exercising 30 minutes uninterrupted every day. I started him on nebulized ipratropium and albuterol and see if that helps with his secretions. If it does, then we can get him a nebulizer when he is discharged home. This is a 50 minute consult, with greater than 50% of time spent on unit coordinating care. Job ID: [id number]
[2019-10-23] MEDS ORDERED: Sodium Chloride 0.9% 500 ML IV SCH (12:30)
[2019-10-23 12:34] VITALS: BP 98/52
--- NOTE | 2019-10-23 12:38 | PDOC.HOSPP ---
- Subjective Encounter Date: 10/23/19 Encounter Time: 12:30 Subjective: f/u for resp failure with chronic tracheostomy on T-collar tx for pneumonia/ COPD with Cefepime/Levaquin/Duonebs/Solumedrol. Nursing reports sudden near syncopal event this am after ambulating in room with PT. Nursing suctioned the trach with flexible catheter with return of copious secretions. Pt also hypotensive and placed in recliner with improvement in BP response. - Objective Vital Signs & Weight: Vital Signs (12 hours) Temp Pulse Pulse Pulse Resp BP BP 10/23/19 12:31 73 69 98/52 L 91/51 L 10/23/19 07:25 97.4 F L 58 L 18 10/23/19 04:00 98.6 F 64 18 BP Pulse Ox 10/23/19 12:31 10/23/19 07:25 100/58 L 98 10/23/19 04:00 111/62 98 Weight Admit Weight 108 lb 6.4 oz Weight 108 lb I&O: 10/22/19 10/23/19 10/24/19 06:59 06:59 06:59 Intake Total 820 Output Total 1200 Balance -380 Result Diagrams: 10/23/19 04:20 10/23/19 04:20 Additional Labs: Microbiology 10/21/19 21:30 Nasal swab Influenza Types A,B Direct EIA - Final 10/21/19 21:18 Urine voided Urine Culture - Preliminary NO GROWTH AT 24 HOURS 10/21/19 19:50 Venous blood - Right Arm Blood Culture - Preliminary Specimen has been received and culture in progress. No Growth to date. 10/21/19 19:35 Venous blood - Left Arm Blood Culture - Preliminary Specimen has been received and culture in progress. No Growth to date. Laboratory Tests 10/21/19 10/23/19 10/23/19 19:35 04:20 04:20 B-Natriuretic Peptide 948.1 H 397.6 H TSH 3rd Generation 3.4230 EKG Reviewed by me: Yes (Tele - V-pacing) Hospitalist ROS - Medication Medications: Active Medications Generic Name Dose Route Start Last Admin Trade Name Freq PRN Reason Stop Dose Admin Aspirin 81 mg 10/23/19 09:00 10/23/19 08:51 Aspirin Chewable PO 81 mg QAM LEONCIO Administration Famotidine 20 mg 10/22/19 21:00 10/23/19 08:51 Pepcid PO 20 mg BID LEONCIO Administration Cefepime HCl 2 gm/ Sodium 100 mls @ 200 mls/hr 10/22/19 13:00 10/23/19 01:03 Chloride IVPB 100 mls 0100,1300 LEONCIO Administration Levofloxacin 750 mg/ Device 150 mls @ 100 mls/hr 10/22/19 11:00 10/23/19 10: 48 IVPB 150 mls 1100 LEONCIO Administration Isosorbide Mononitrate 30 mg 10/23/19 09:00 10/23/19 08:51 Imdur Er PO 30 mg QAM LEONCIO Administration Levothyroxine Sodium 175 mcg 10/23/19 09:00 10/23/19 08:51 Synthroid PO 175 mcg DAILY LEONCIO Administration Potassium Chloride 10 meq 10/23/19 09:00 10/23/19 08:50 Klor-Con 10 PO 10 meq QAM LEONCIO Administration Scopolamine 1.5 mg 10/22/19 11:00 10/22/19 11:04 Transderm Scop TD 1.5 mg Q3D LEONCIO Administration Spironolactone 25 mg 10/23/19 09:00 10/23/19 08:51 Aldactone PO 25 mg DAILY LEONCIO Administration - Exam General Appearance: ill appearing General - other findings: lethargic but opens eyes and responds slowly to questions Eye: PERRL, anicteric sclera ENT: normocephalic atraumatic, no oropharyngeal lesions Neck - other findings: Trach in place with secretions noted Heart: no gallops, no rubs Heart - other findings: distant heart sounds Respiratory: tachypneic Respiratory - other findings: coarse sounds and diminished bilat Gastrointestinal: soft, non-tender, non-distended, normal bowel sounds, no palpable masses Extremities: no cyanosis, no clubbing, no edema Skin - other findings: decreased turgor Neurological: no new deficit Musculoskeletal: generalized weakness, diffuse muscle atrophy Psychiatric: oriented to person, lethargic Hosp A/P (1) Acute and chronic respiratory failure with hypoxia Code(s): J96.21 - ACUTE AND CHRONIC RESPIRATORY FAILURE WITH HYPOXIA Status: Acute Plan: Intermittent exacerbations multifactorial including retained secretions in trach , continue trach suctioning, Duonebs, Solumedrol and IV abx, Trach collar titrating (2) Acute on chronic systolic CHF (congestive heart failure) Code(s): I50.23 - ACUTE ON CHRONIC SYSTOLIC (CONGESTIVE) HEART FAILURE Status : Acute Plan: Decrease Lasix 20mg IV daily (3) COPD exacerbation Code(s): J44.1 - CHRONIC OBSTRUCTIVE PULMONARY DISEASE W (ACUTE) EXACERBATION Status: Acute Plan: Add Solumedrol, continue Cefepime/Levaquin/Duonebs, end-stage process (4) Throat cancer Code(s): C14.0 - MALIGNANT NEOPLASM OF PHARYNX, UNSPECIFIED Status: Chronic Plan: Keytruda as outpt q3 weeks (5) Severe muscle deconditioning Code(s): R29.898 - OTH SYMPTOMS AND SIGNS INVOLVING THE MUSCULOSKELETAL SYSTEM Status: Chronic Plan: PT for mobilization, Ensure/Regular diet (6) Hypothyroid Code(s): E03.9 - HYPOTHYROIDISM, UNSPECIFIED Status: Chronic Plan: Continue Synthroid (7) Hypotension Status: Acute Plan: Likely multifactorial including increased Lasix exposure, decrease Lasix, IV NS bolus x 500ml, decrease Entresto 24mg BID, serial monitoring given EF 25-30% - Plan old records reviewed/req, plan discussed w/ family, continue antibiotics, PT/OT , nursing home social worker, speech therapy, respiratory therapy, DVT proph w/SCDs Transfer to [facility] for closer supervision and trach care Decrease Lasix 20mg IV daily Decrease Entresto 24mg BID IV NS 500ml bolus x 1 now Solumedrol 80mg IV x 1 now Solumedrol 40mg IV q6h AM lab: BMP, CBC
[2019-10-23] MEDS ORDERED: methylPREDNISolone Sod Succ/PF 125 MG/2 ML VIAL IVP SCH (13:01)
--- NOTE | 2019-10-23 14:07 | PDOC.CPN ---
- Subjective Date: 10/23/19 Time: 14:18 Interval history: The pt seen and examined. No overnight events. No cardiac complaints. - Objective Allergies/Adverse Reactions: Allergies Allergy/AdvReac Type Severity Reaction Status Date / Time atorvastatin calcium Allergy ITCHING Verified 10/22/19 07:27 [From Lipitor] fentanyl Allergy Swollen Verified 10/22/19 07:27 Lips,chest pains, decrease in b/p Visit Medications: Current Medications Acetaminophen (Tylenol) 1,000 mg PO Q6H PRN PRN Reason: Mild Pain (1-3) Albuterol/Ipratropium (Duoneb) 3 ml NEB [id number] PRN PRN Reason: SOB &/or Wheezing Albuterol/Ipratropium (Duoneb) 3 ml [id number] [facility] Aspirin (Aspirin Chewable) 81 mg PO QAM [facility] Last Admin: 10/23/19 08:51 Dose: 81 mg Famotidine (Pepcid) 20 mg PO BID [facility] Last Admin: 10/23/19 08:51 Dose: 20 mg Furosemide (Lasix) 20 mg SLOW IVP DAILY [facility] Guaifenesin/Dextromethorphan (Robitussin Dm) 15 ml PO Q4H PRN PRN Reason: Cough Hydralazine HCl (Apresoline) 10 mg SLOW IVP Q4H PRN PRN Reason: SBP > 180 and HR < 70 Cefepime HCl 2 gm/ Sodium (Chloride) 100 mls @ 200 mls/hr IVPB 0100,1300 [facility] Last Admin: 10/23/19 13:15 Dose: 100 mls Levofloxacin 750 mg/ Device 150 mls @ 100 mls/hr IVPB 1100 [facility] Last Admin: 10/23/19 10:48 Dose: 150 mls Isosorbide [facility]onit[facility] ([facility]dur Er) [facility] Last Admin: 10/23/19 08:51 Dose: 30 mg Levothyroxine Sodium (Synthroid) 175 mcg PO DAILY [facility] Last Admin: 10/23/19 08:51 Dose: 175 mcg Loperamide HCl (Imodium) 2 mg PO PRN PRN PRN Reason: Diarrhea/Loose Stools Methylprednisolone Sodium Succinate (Solu-Medrol) 80 mg IVP NOW [facility] Stop: 10/23/19 15:00 Last Admin: 10/23/19 13:15 Dose: 80 mg Methylprednisolone Sodium Succinate (Solu-Medrol) 40 mg IVP Q6HR [facility] Ondansetron HCl (Zofran Odt) 4 mg PO Q6H PRN PRN Reason: Nausea/Vomiting Ondansetron HCl (Zofran) 4 mg IVP Q6H PRN PRN Reason: Nausea/Vomiting Potassium Chloride (Klor-Con 10) 10 meq PO QAM [facility] Last Admin: 10/23/19 08:50 Dose: 10 meq Sacubitril/Valsartan (Entresto 24 Mg-26 Mg Tablet) 1 tab PO BID [facility] Scopolamine (Transderm Scop) 1.5 mg TD Q3D [facility] Last Admin: 10/22/19 11:04 Dose: 1.5 mg Spironolactone (Aldactone) 25 mg PO DAILY [facility] Last Admin: 10/23/19 08:51 Dose: 25 mg Vital Signs & Weight: Vital Signs Temp Pulse Pulse Pulse Resp BP BP 10/23/19 12:31 73 69 98/52 L 91/51 L 10/23/19 07:25 97.4 F L 58 L 18 10/23/19 04:00 98.6 F 64 18 BP Pulse Ox 10/23/19 12:31 10/23/19 07:25 100/58 L 98 10/23/19 04:00 111/62 98 Admit Weight 108 lb 6.4 oz Weight 108 lb - Physical Exam General: alert & oriented x3 Neck: supple neck Cardiac: regular rate and rhythm Lungs: decreased breath sounds - Labs Result Diagrams: 10/23/19 04:20 10/23/19 04:20 - Telemetry Sinus rhythms and dysrhythmias: other (AV paced) - Assessment/Plan Assessment/Plan: 1. Acute and chronic respiratory failure 2/2 increasing secretion from his tracheostomy 2. Acute on chronic Systolic HF with EF 25-30% - 3. 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 CAD with hx of CABG in 1992 - 5. Throat cancer which metastatic to lungs and Liver - on Keytruda as outpt q3 weeks 6. HTN - Hypotension; the pt will tx to IMCU; Lasix was decreased, IV NS bolus x 500ml, Entresto was decreased from 49/51mg to 24/26mg BID 7. Hypothyroidism 8. Hx of Colon Cancer - having diarrhea; will MAR reviewed * the pt was tx to IMCU for hypotension * Echo on 07/2019 with EF 25-30%, akinetic inferior wall, mod-severe dilated LA , mod MR, and mild TR; another Echo was taken and the result is pending There has not been any significant change in the echo that was done yesterday compared to the one in Oct. Poor prognosis. deon
[2019-10-23] MEDS: methylPREDNISolone Sod Succ 40 MG VIAL IVP SCH (17:48)
[2019-10-24] MEDS: methylPREDNISolone Sod Succ 40 MG VIAL IVP SCH ×3 (01:09→11:49)
[2019-10-24] MEDS: Cefepime 2 GM in Sodium Chloride 0.9% 100 ML IVPB SCH ×2 (01:11→11:50)
[2019-10-24 05:30] LABS: Band 17 % (5-11); Elliptocytes SLIGHT = 2-5 cells (100X) (0-1/hpf); Hemoglobin 10.4 g/dL (14.0-18.0); Lymphocytes 5 % (21-51); MDiff Complete? YES; Mean Corpuscular HGB CONC 33.9 g/dL (32.0-36.0); Mean Corpuscular Volume 91.4 fL (78.0-98.0); Mean Platelet Volume 7.6 fL (7.4-10.4); Monocytes 2 % (0-10); Neutrophil 76 % (42-75); Platelet Count 205 thou/uL (130-400); RBC Distribution Width 14.1 % (11.5-14.5); Red Blood Cell (RBC) Count 3.35 mill/uL (4.70-6.10); White Blood Cell (WBC) Count 3.8 thou/uL (4.8-10.8)
[2019-10-24 05:47] LABS: Anion Gap 14 mmol/L (10-20); BUN (Urea Nitrogen) 25 mg/dL (8.4-25.7); Calc. Creatinine Clearance 36 mL/min (70-130); Carbon Dioxide 21 mmol/L (23-31); Chloride 102 mmol/L (98-107); Estimated GFR-MDRD 53; Glucose 131 mg/dL (83-110); Potassium 4.3 mmol/L (3.5-5.1); Sodium 133 mmol/L (136-145)
[2019-10-24] MEDS ORDERED: Furosemide 20 MG/2 ML VIAL SLOW IVP SCH (09:00)
[2019-10-24] MEDS: Aspirin Chewable 81 MG TAB PO SCH (09:05)
[2019-10-24] MEDS: Levothyroxine 175 MCG TAB PO SCH (09:05)
[2019-10-24] MEDS: Potassium Chloride 10 MEQ TAB PO SCH (09:05)
--- NOTE | 2019-10-24 09:24 | PRG ---
DATE OF SERVICE: 10/24/2019 SUBJECTIVE: Mr. Whalen is feeling better today. Yesterday, he had a severe episode of hypotension. He had received the Entresto. It appeared he is volume depleted when he got the Entresto. When he got 500 mL of saline, he improved. He took the Entresto last night and did fine. OBJECTIVE: VITAL SIGNS: His blood pressure most recent is 109/58, pulse 60. LUNGS: Clear. CARDIAC: Normal S1, normal S2. ABDOMEN: Soft, nontender. EXTREMITIES: No edema. ASSESSMENT: 1. Congestive heart failure, stable, controlled. No evidence of heart failure. 2. Hypotension yesterday related to volume depletion and heart failure medicines. PLAN: 1. Diuretics have been put on hold. 2. Hold isosorbide. 3. Reduce dose of Entresto. We will continue to follow with you. Job ID: [id number]
--- NOTE | 2019-10-24 13:22 | PRG ---
DATE OF SERVICE: 10/24/2019 SUBJECTIVE: Mr. Whalen is clinically much better. His says his secretions are better. He has had no more hypotension. Cultures from the were negative. He has had no fever. OBJECTIVE: LUNGS: Clear. HEART: Regular rhythm. ABDOMEN: Soft. LABORATORY DATA: White count 3.8, hemoglobin 10.4, platelets 205. Sodium 133, potassium 4.3, chloride 102, bicarb 29, BUN 25, creatinine 1.32. We will transition him into p.o. antimicrobial therapy, given his negative cultures. I think he probably had mostly bronchitis with a COPD exacerbation. He does have a pulmonary nodule, assuming he is being followed by the oncologist. He is on Keytruda. For that reason, it would be nice to get him started tapering his steroids. His wanted to leave him on steroids because of how much better his secretions are. I have explained to her that we need to follow him for a few weeks and decide what we are going to do. I will be happy to follow him as an outpatient. Job ID: [id number]
--- NOTE | 2019-10-24 13:40 | PDOC.HOSPP ---
- Subjective Encounter Date: 10/24/19 Encounter Time: 13:35 Subjective: f/u for resp failure, COPD exacerbation and hypotension. Overall stabilizing since 10/23/19. Secretions decreased per report. - Objective Vital Signs & Weight: Vital Signs (12 hours) Temp Pulse Resp Pulse Ox 10/24/19 11:44 98.2 F 10/24/19 07:59 98 10/24/19 07:40 98.0 F 10/24/19 07:32 77 20 98 10/24/19 03:39 98.5 F Weight Admit Weight 108 lb 6.4 oz Weight 119 lb 2 oz Most Recent Monitor Data Heart Rate from ECG 81 NIBP 109/58 NIBP BP-Mean 75 Respiration from ECG 18 SpO2 95 I&O: 10/23/19 10/24/19 10/25/19 06:59 06:59 06:59 Intake Total 820 1100 Output Total 1200 Balance -380 1100 Result Diagrams: 10/24/19 04:07 10/24/19 04:07 Additional Labs: Microbiology 10/21/19 21:30 Nasal swab Influenza Types A,B Direct EIA - Final 10/21/19 21:18 Urine voided Urine Culture - Preliminary NO GROWTH AT 24 HOURS 10/21/19 19:50 Venous blood - Right Arm Blood Culture - Preliminary Specimen has been received and culture in progress. No Growth to date. 10/21/19 19:35 Venous blood - Left Arm Blood Culture - Preliminary Specimen has been received and culture in progress. No Growth to date. Laboratory Tests 10/21/19 10/23/19 10/23/19 19:35 04:20 04:20 Hgb Band Neuts % (Manual) Sodium 133 L Creatinine 0.95 B-Natriuretic Peptide 948.1 H TSH 3rd Generation 3.4230 10/23/19 10/23/19 10/24/19 04:20 04:20 04:07 Hgb 11.4 L Band Neuts % (Manual) 13 H 17 H Sodium Creatinine B-Natriuretic Peptide 397.6 H TSH 3rd Generation Radiology Reviewed by me: Yes (Echo - EF 25-30%) EKG Reviewed by me: Yes (Tele - V-pacing) Hospitalist ROS - Medication Medications: Active Medications Generic Name Dose Route Start Last Admin Trade Name Freq PRN Reason Stop Dose Admin Albuterol/Ipratropium 3 ml 10/23/19 13:00 10/24/19 12:17 Duoneb EZPAP Not Given [id number] LEONCIO Aspirin 81 mg 10/23/19 09:00 10/24/19 09:05 Aspirin Chewable PO 81 mg QAM LEONCIO Administration Levothyroxine Sodium 175 mcg 10/23/19 09:00 10/24/19 09:05 Synthroid PO 175 mcg DAILY LEONCIO Administration Potassium Chloride 10 meq 10/23/19 09:00 10/24/19 09:05 Klor-Con 10 PO 10 meq QAM LEONCIO Administration Sacubitril/Valsartan 1 tab 10/23/19 21:00 10/24/19 09:04 Entresto 24 Mg-26 Mg Tablet PO 1 tab BID LEONCIO Administration Scopolamine 1.5 mg 10/22/19 11:00 10/22/19 11:04 Transderm Scop TD 1.5 mg Q3D LEONCIO Administration - Exam General Appearance: NAD, awake alert General - other findings: smiling, responsive Eye: PERRL, anicteric sclera ENT: normocephalic atraumatic, no oropharyngeal lesions Neck: supple, symmetric, no JVD, no thyromegaly Neck - other findings: Trach in place Heart: RRR, no gallops, no rubs, normal peripheral pulses Respiratory - other findings: diminished in bases, few scattered rhonchi Gastrointestinal: soft, non-tender, non-distended, normal bowel sounds Extremities: no cyanosis, no clubbing, no edema Skin: normal turgor, no lesions Neurological: cranial nerve grossly intact, no new deficit Musculoskeletal: generalized weakness, diffuse muscle atrophy Psychiatric: oriented to person, oriented to place Hosp A/P (1) Acute and chronic respiratory failure with hypoxia Code(s): J96.21 - ACUTE AND CHRONIC RESPIRATORY FAILURE WITH HYPOXIA Status: Acute Plan: Continue Trach with T-collar PRN, transition to RA if tolerating (2) Acute on chronic systolic CHF (congestive heart failure) Code(s): I50.23 - ACUTE ON CHRONIC SYSTOLIC (CONGESTIVE) HEART FAILURE Status : Acute Plan: Stable currently, hold Lasix due to hypotension (3) COPD exacerbation Code(s): J44.1 - CHRONIC OBSTRUCTIVE PULMONARY DISEASE W (ACUTE) EXACERBATION Status: Acute Plan: Continue Solumedrol and transition to Prednisone in next 24h, convert to po abx (4) Throat cancer Code(s): C14.0 - MALIGNANT NEOPLASM OF PHARYNX, UNSPECIFIED Status: Chronic Plan: Keytruda as outpt (5) Severe muscle deconditioning Code(s): R29.898 - OTH SYMPTOMS AND SIGNS INVOLVING THE MUSCULOSKELETAL SYSTEM Status: Chronic (6) Hypothyroid Code(s): E03.9 - HYPOTHYROIDISM, UNSPECIFIED Status: Chronic (7) Hypotension Status: Acute Plan: Resolving, continue off Lasix and Entresto dose decreased by 1/2 - Plan old records reviewed/req, plan discussed w/ family, continue antibiotics, PT/OT , social group worker, respiratory therapy, DVT proph w/SCDs Transfer to [facility] for closer supervision and trach care Lasix on hold Decrease Entresto 24mg BID Prednisone 40mg po daily Levaquin 500mg daily AM lab: BMP, CBC Likely home in 24h
[2019-10-24] MEDS ORDERED: Famotidine 20 MG TAB PO SCH (21:00)
[2019-10-25 04:20] LABS: Anion Gap 9 mmol/L (10-20); BUN (Urea Nitrogen) 27 mg/dL (8.4-25.7); Calc. Creatinine Clearance 38 mL/min (70-130); Calcium 9.2 mg/dL (7.8-10.44); Carbon Dioxide 25 mmol/L (23-31); Chloride 103 mmol/L (98-107); Estimated GFR-MDRD 62; Glucose 123 mg/dL (83-110); Potassium 4.1 mmol/L (3.5-5.1); Sodium 133 mmol/L (136-145)
[2019-10-25] MEDS ORDERED: predniSONE 20 MG TAB PO SCH (08:00)
--- NOTE | 2019-10-25 09:00 | CON ---
DATE OF CONSULTATION: PRIMARY CARE DOCTOR: Dr. Wilcox. PRIMARY MACADAM RAKER: Dr. Ohara. PRIMARY ONCOLOGIST: Dr. Colvin. PRIMARY ENT: Dr. Almonte. PRIMARY DIRECTOR OF DISTANCE LEARNING: Dr. Venegsa. REASON FOR CARDIOLOGY CONSULTATION: Congestive heart failure. HISTORY OF PRESENT ILLNESS: Mr. 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 The patient has also had a tracheostomy placement due to the cancer in June 2019, which is managed by Dr. Venegas and the patient's at home with daily suction and general trach care. According to the patient's , the patient has been doing relatively well except at some time, the patient developed some fluid and gained wet. Otherwise, the patient was doing well with the extra Lasix and he has been on Entresto p.o. for the congestive heart failure. Even yesterday around 5 o'clock, also the patient took the Lasix 20 mg, he did not void well and he started having more shortness of breath over the night, which is getting worse over the night. Due to those reasons, the patient's decided to transfer the patient to the emergency department for further evaluation and treatment. The states that his circulation was stable. However, according to the Sound doctor report, the is concerned about and continuous worsening of cough, which the patient's denied at this time. The patient started having shortness of breath with congestion into the lung. According to the nurse, the patient has been coughing up greenish thick secretion since admission. According to the patient's after the patient received IV Lasix and antibiotics, the patient's breathing status has improved. At this moment, the patient would like to take it off the trach collar. The patient denied any chest pain, heaviness, tightness, dizziness, lightheadedness, palpitation, or fluttering in his chest. 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 History of lung cancer. He is an ex-smoker. PAST SURGICAL HISTORY: Status post ileostomy with reversal, status post coronary artery bypass graft x3 in 1992, status post vocal cord surgery secondary to throat cancer, status post tracheostomy placement in June 2019, status post AICD placement. FAMILY HISTORY: The patient's father at the age of 47. The patient's mother at the age of 83. SOCIAL HISTORY: He is . He is living with his in [place], [place], assisted living. The patient has occasional alcohol use. Previous smoker, one pack a day. No illicit drug abuse. He goes to cardiac rehab 3 times a week with no cardiac complaints according to his . ALLERGIES: HE IS ALLERGIC TO ATORVASTATIN, CALCIUM, AND FENTANYL. CURRENT MEDICATIONS: 1. Aspirin 81 mg once a day. 2. Imdur 30 mg once a day. 3. Potassium 10 mEq once a day with Lasix. 4. Levothyroxine 175 mcg once a day. 5. Lasix 20 mg once a day as needed. 6. Entresto 49/51 one tablet twice a day. 7. Spironolactone 25 mg once a day. 8. Keytruda 2 mg/kg IV every 21 days. 9. Scopolamine patch every three days. REVIEW OF SYSTEMS: 12-point review of systems negative unless otherwise as mentioned in the HPI. PHYSICAL EXAMINATION: VITAL SIGNS: Blood pressure 109/70, temperature 98.7, pulse is 70. AV pacing. O2 saturation 88%, 28% of trach collar. GENERAL: The patient is alert and oriented x4. He cannot talk due to the trach, however, he answers well and he can write for the communication. HEENT: Normocephalic, atraumatic. EYES: Extraocular muscle movement intact. ENT AND MOUTH: Oral and nasal mucosa moist without lesion. The patient had a trach in the trach area. LUNGS: Very diminished and rhonchi, coarse in the bilateral lobes. CARDIOVASCULAR: Regular rate and rhythm. Normal S1, S2. There is no S3 or S4. No significant murmur or hives noted. 2+ pulses in bilateral upper and lower extremities. No edema in the lower extremities. Carotid pulses are present without bruit or thrill, but no pulse on palpation at the bilateral femoral side. ABDOMEN: Soft, nontender. No mass to palpitate. Bowel sounds are present. SKIN: Warm and dry. No lesion, rash, or erythema noted. MUSCULOSKELETAL: The patient is able to move all extremities. He uses a cane. The patient denied any claudication. NEUROLOGICAL: The patient is alert and oriented x4. Nonfocal. PSYCHIATRIC: The patient's mood is appropriate. LABORATORY DATA: WBC 6.2, hemoglobin 10.7, hematocrit 35, platelets 237. Sodium 138, potassium 4.3, BUN 15, creatinine 0.93, glucose 99, calcium 9.1,. AST 13, ALT 8, CK-MB 1.4. Troponin is negative. CRP 1.94. BNP 948. TSH is 6.9816. Urine sample is negative except rbc is high. Chest x-ray shows very faint 1.5 cm nodular density in the right mid lung. This was seen on the prior study, has not really changed. Cardiac catheterization was done in December 2014, with patent graft SANCHEZ to LAD, graft to the posterior descending artery is closed. No stenosis in the circumflex, but small distribution vessel and severely iliac disease on the right with some iliac disease on the left as well and abdominal aortic aneurysm identified. CT scan in 2015, shows no acute dissection or acute intramural thoracic aortic hematoma. ASSESSMENT AND PLAN: 1. Acute on chronic combined systolic and diastolic heart failure. The patient's echo was done today and the result is pending at this moment. At this moment, the patient is symptomatic. He is on Lasix IV push every 2 hours. The patient is not on carvedilol or lisinopril at this moment due to hypotension, however, the patient is on isosorbide 30 mg once a day, which is good for diastolic dysfunction. The patient is on Entresto and the patient on spironolactone 25 mg once a day. The patient is not on a beta [place] at this moment because of breathing difficulty problem. 2. Metastatic throat cancer, on Keytruda, status post tracheostomy in June 2019, which is managed by Oncology, Pulmonology, ENT Service. 3. Coronary artery disease with history of CABG x3 in 1992. The patient's cath in 2015 shows 100% closed. The patient is asymptomatic. At this moment, the patient is not on a beta [place]; however, the patient is on aspirin. The patient is on possibly due to the metastatic disease to the liver. The patient's liver function level on this admission is stable. 4. Hypertension. Blood pressure is stable at this moment. Presence of AICD defibrillator which was interrogated by Dr. Ohara in August 2019, which showed normal function according to the patient's visit note that day. 5. Hypothyroidism, which is managed by primary care doctor. 6. Diarrhea. The patient is going to check the stool culture. Thank you very much for Cardiology Service to participate in the care of this patient. We will follow along the patient's care team and make further recommendations as appropriate. Job ID: [id number]
--- NOTE | 2019-10-25 09:02 | PRG ---
DATE OF SERVICE: 10/25/2019 SUBJECTIVE: Mr. Whalen just feels weak and tired, but no chest pain today. OBJECTIVE: VITAL SIGNS: Blood pressure is better at 118/71, pulse 60. LUNGS: Clear. CARDIAC: Normal S1, normal S2. ABDOMEN: Soft and nontender. EXTREMITIES: No edema. ASSESSMENT: 1. Congestive heart failure, systolic, appears compensated. 2. Chronic obstructive pulmonary disease, being treated. 3. Renal failure, has improved. Creatinine is now 1.14, now stage 2 renal failure. PLAN: Continue the current medical regimen. No changes at the present time. Job ID: [id number]
[2019-10-25] MEDS: Aspirin Chewable 81 MG TAB PO SCH (09:10)
[2019-10-25] MEDS: Levothyroxine 175 MCG TAB PO SCH (09:10)
[2019-10-25] MEDS: Potassium Chloride 10 MEQ TAB PO SCH (09:21)
--- NOTE | 2019-10-25 09:49 | PDOC.HOSPP ---
- Subjective Encounter Date: 10/25/19 Encounter Time: 12:00 Subjective: Patient feeling much better, back to baseline. Decreased secretions with Scopolamine patch and prednisone. - Objective Vital Signs & Weight: Vital Signs (12 hours) Temp Pulse Resp Pulse Ox 10/25/19 07:44 100 10/25/19 07:37 63 19 99 10/25/19 07:27 97.2 F L 10/25/19 03:52 97.7 F 10/25/19 00:48 68 12 10/25/19 00:00 98.2 F Weight Admit Weight 108 lb 6.4 oz Weight 109 lb 4 oz Most Recent Monitor Data Heart Rate from ECG 65 NIBP 118/71 NIBP BP-Mean 86 Respiration from ECG 19 SpO2 99 I&O: 10/24/19 10/25/19 10/26/19 06:59 06:59 06:59 Intake Total 1100 1260 Balance 1100 1260 Result Diagrams: 10/24/19 04:07 10/25/19 03:23 Hospitalist ROS - Review of Systems Constitutional: denies: fever, sweats Respiratory: reports: cough. denies: shortness of breath Cardiovascular: denies: chest pain, palpitations, orthopnea Gastrointestinal: denies: nausea, vomiting, abdominal pain - Medication Medications: Active Medications Generic Name Dose Route Start Last Admin Trade Name Freq PRN Reason Stop Dose Admin Albuterol/Ipratropium 3 ml 10/23/19 13:00 10/25/19 07:37 Duoneb EZPAP 3 ml [id number] LEONCIO Administration Aspirin 81 mg 10/23/19 09:00 10/25/19 09:10 Aspirin Chewable PO 81 mg QAM LEONCIO Administration Famotidine 20 mg 10/24/19 21:00 10/24/19 21:09 Pepcid PO 20 mg 2100 LEONCIO Administration Levofloxacin 500 mg 10/25/19 06:00 10/25/19 06:04 Levaquin PO 500 mg 0600 LEONCIO Administration Levothyroxine Sodium 175 mcg 10/23/19 09:00 10/25/19 09:10 Synthroid PO 175 mcg DAILY LEONCIO Administration Potassium Chloride 10 meq 10/23/19 09:00 10/25/19 09:21 Klor-Con 10 PO 10 meq QAM LEONCIO Administration Prednisone 40 mg 10/25/19 08:00 10/25/19 09:10 Prednisone PO 40 mg QAM-WM LEONCIO Administration Sacubitril/Valsartan 1 tab 10/23/19 21:00 10/25/19 09:16 Entresto 24 Mg-26 Mg Tablet PO 1 tab BID LEONCIO Administration Scopolamine 1.5 mg 10/22/19 11:00 10/22/19 11:04 Transderm Scop TD 1.5 mg Q3D LEONCIO Administration - Exam General Appearance: NAD, awake alert ENT: moist mucosa ENT - other findings: trach in place, no secretions from it currently Heart: RRR, no murmur, no gallops, no rubs Respiratory: CTAB, no wheezes, no rales, no ronchi Respiratory - other findings: occ coughing Gastrointestinal: soft, non-tender, non-distended Psychiatric: normal affect, normal behavior, A&O x 3 Hosp A/P (1) Acute and chronic respiratory failure with hypoxia Code(s): J96.21 - ACUTE AND CHRONIC RESPIRATORY FAILURE WITH HYPOXIA Status: Acute (2) COPD exacerbation Code(s): J44.1 - CHRONIC OBSTRUCTIVE PULMONARY DISEASE W (ACUTE) EXACERBATION Status: Acute (3) Acute on chronic systolic CHF (congestive heart failure) Code(s): I50.23 - ACUTE ON CHRONIC SYSTOLIC (CONGESTIVE) HEART FAILURE Status : Acute (4) Hypothyroid Code(s): E03.9 - HYPOTHYROIDISM, UNSPECIFIED Status: Chronic (5) Severe muscle deconditioning Code(s): R29.898 - OTH SYMPTOMS AND SIGNS INVOLVING THE MUSCULOSKELETAL SYSTEM Status: Chronic (6) Throat cancer Code(s): C14.0 - MALIGNANT NEOPLASM OF PHARYNX, UNSPECIFIED Status: Chronic (7) Moderate protein-calorie malnutrition Code(s): E44.0 - MODERATE PROTEIN-CALORIE MALNUTRITION Status: Chronic (8) Pulmonary nodule, right Code(s): R91.1 - SOLITARY PULMONARY NODULE Status: Chronic - Plan Patient improved with decreased secretions. States he is ready to go home. Patient cleared by Dr. Venegas for discharge and f/u in 2 weeks. Continue steroids. One more day of Levaquin. Cardiac meds adjusted by Dr. Ohara. states they already have everything they need for trach care and transfers at home. Denies need for home health at this time.
[2019-10-25] MEDS: Scopolamine 1.5 mg/72 hour Patch TD SCH (13:00)
[2019-10-25 14:46] VITALS: BMI 16.6
--- NOTE | 2019-10-25 14:52 | DIS ---
DATE OF ADMISSION: 10/22/2019 DATE OF DISCHARGE: 10/25/2019 PRIMARY CARE PHYSICIAN: Dr. Misti Wilcox. REASON FOR ADMISSION: Acute on chronic hypoxic respiratory failure. DIAGNOSES AT DISCHARGE: 1. Acute on chronic hypoxic respiratory failure, improved. 2. Chronic obstructive pulmonary disease exacerbation. 3. Acute on chronic systolic congestive heart failure. 4. Hypothyroidism. 5. Severe muscle deconditioning. 6. Throat cancer. 7. Moderate protein-calorie malnutrition. 8. Right pulmonary nodule. PROCEDURES: Echocardiogram showing ejection fraction of 25% to 30%, as well as diastolic dysfunction and trivial pericardial effusion. CONSULTATIONS: 1. Cardiology, Dr. Hardy for Dr. Ohara. 2. Pulmonology, Dr. Venegas. 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 He is status post tracheostomy placement , has had difficulty with lot of secretions. Has been receiving home health services to assist with tracheostomy management. He had some increased worsening respiratory distress, came to the emergency room, his oxygen saturations were low. The patient was admitted. He was started on steroids with marked improvement of his secretions and his shortness of breath. He also was given a course of antibiotics. Dr. Venegas and Dr. Ohara were consulted and made adjustments to his medication. The patient was back to his baseline by the end of his hospitalization and eager to go home. There was some concern that the steroids decreased the effectiveness of his immunotherapy. However, with marked improvement from the steroids he is going to stay on that for now. He will be decreased to a lower oral dose and follow up with Dr. Venegas as an outpatient. DISCHARGE MANAGEMENT: Discharged home. ACTIVITY: As tolerated. DIET: Healthy heart diet. Continue trach care at home as previously. FOLLOWUP: Follow up with Dr. Wilcox as needed, with Dr. Venegas in 2 weeks, with Dr. Ohara as needed, and with the oncologist as scheduled for the next dose of immunotherapy next week. DISCHARGE MEDICATIONS: 1. Levaquin 500 mg daily for one more day for a total of 5 days of antibiotics. 2. Prednisone 20 mg daily, 30 tablets dispensed. 3. Entresto 24/26 mg one tablet twice a day, 60 tablets dispensed. Discontinue the higher dose he was on before. 4. Aspirin 81 mg daily. 5. Levothyroxine 175 mcg daily. 6. Potassium 10 mEq daily. 7. Scopolamine patch applied every 3 days as needed. 8. Continue furosemide 20 mg daily. 9. Continue Keytruda injections as per the oncologist. 10. Spironolactone 25 mg daily. 11. Stop the old dose of Entresto as well as the isosorbide mononitrate. Arranging the details of this discharge took 32 minutes. Job ID: [id number] MTDD
[2019-10-25 15:39] VITALS: TEMP 98.4
--- NOTE | 2019-10-25 15:39 | PRG ---
DATE OF SERVICE: 10/25/2019 SUBJECTIVE: Luis Whalen is in no distress. His secretions were much improved. OBJECTIVE: VITAL SIGNS: His heart rate is in the 60s, respiratory rate is 20, oximetry is 100%, and blood pressure 122/68. LUNGS: Unchanged. HEART: Unchanged. ABDOMEN: Unchanged. It was anticipated he will go home today. His electrolytes are unremarkable. He will stay on 20 mg a day of prednisone plus nebulized treatments. I will see him in 2 weeks. Job ID: [id number]
--- NOTE | 2019-10-25 15:44 | PQF ---
[facility] RYAN ANDREW MD [id number] CLINICAL DOCUMENTATION IMPROVEMENT CLARIFICATION FORM: ICD-10 Updated PLEASE DO AN ADDENDUM TO THE PROGRESS NOTE WITH ANY DOCUMENTATION UPDATES OR ADDITIONS AND CARRY THROUGH TO DC SUMMARY. THANK YOU. DATE: 10/25/2019 ATTN:DR. Delfina MACIAS Please exercise your independent, professional judgment in responding to the clarification form. Clinical indicators are provided on the bottom of this form for your review. Please check appropriate box(s): [ ] Hyponatremia please specify etiology, if known [ ] Hyponatremia due to SIADH (Syndrome of Inappropriate Secretion of Antidiuretic Hormone) [ ] Other diagnosis [ X ] Unable to determine In addition, please specify: Present on Admission (POA): [ ] Yes [ ] No [ X ] Unable to determine CLINICAL INDICATORS - SIGNS / SYMPTOMS / LABS / RESULTS AND LOCATION IN EMR 10/23 SODIUM LEVEL 133 10/24 SODIUM LEVEL 133 10/25 SODIUM LEVEL 133 RISK: DX MODERATE PROTEIN CALORIE MALNUTRITION (PN/GILBERTO) 10/25 DX DIARRHEA , METASTATIC THROAT CANCER TO LIVER/LUNGS ( H&P/ JA) 10/22 TREATMENTS: SODIUM CHLORIDE IV BOLUS( 10/23) SERIAL LABS ( 10/23-10/25) THANK YOU! SNEHA (This form is maintained as a part of the permanent medical record) 2014 [employer] All Rights Reserved ABENA [email or web address] [phone] [facility]
== END 2019-10-25 15:55 | disposition home or self-care (01) | DRG 291 ==
LOC: ERS 23:18 → 2SW 10-22 01:28 → OBSVTOIN 10-22 10:08 → 2NO 10-22 11:50 → IMCU/EMU 10-23 13:01
PROVIDERS: ADMIT Internal Medicine; ATTEND Internal Medicine
DX: I13.0 Hypertensive heart and chronic kidney disease with heart failure and stage 1 through stage 4 chronic kidney disease, or unspecified chronic kidney disease (principal); J96.21 Acute and chronic respiratory failure with hypoxia; I50.23 Acute on chronic systolic (congestive) heart failure; J44.1 Chronic obstructive pulmonary disease with (acute) exacerbation; E44.0 Moderate protein-calorie malnutrition; Z68.1 Body mass index [BMI] 19.9 or less, adult; C78.00 Secondary malignant neoplasm of unspecified lung; C78.7 Secondary malignant neoplasm of liver and intrahepatic bile duct; E03.9 Hypothyroidism, unspecified; E78.5 Hyperlipidemia, unspecified; C14.0 Malignant neoplasm of pharynx, unspecified; R19.7 Diarrhea, unspecified; I95.9 Hypotension, unspecified; N18.2 Chronic kidney disease, stage 2 (mild); R91.8 Other nonspecific abnormal finding of lung field; I25.5 Ischemic cardiomyopathy; Z93.0 Tracheostomy status; Z95.1 Presence of aortocoronary bypass graft; I25.2 Old myocardial infarction; Z85.038 Personal history of other malignant neoplasm of large intestine; Z79.899 Other long term (current) drug therapy; Z79.890 Hormone replacement therapy; Z88.8 Allergy status to other drugs, medicaments and biological substances; Z87.891 Personal history of nicotine dependence; Z79.82 Long term (current) use of aspirin; Z95.810 Presence of automatic (implantable) cardiac defibrillator
CPT/HCPCS: 36415; 80048; 83880; 84443; 85007; 85027; 93306; 93798; 94640; 99285; J0692; J1940; J1956; J2920; J2930; J3490; J7512; J7620

== ENCOUNTER 2019-11-09 10:43 | Outpatient (CLI) | payer MEDICARE ==
--- NOTE | 2019-11-09 11:11 | RAD ---
XR Chest Pa Lat @ [facility] HISTORY: Malignant neoplasm of the supraglottis, dyspnea COMPARISON: 10/21/2019 FINDINGS: Changes of median sternotomy are again seen. Left-sided AICD and tracheostomy tube remain i n place. The heart size normal. The lungs are expanded without lobar consolidation, pneumothoraces or pleural effusions. The 15 mm nodule in the right midlung is stable. IMPRESSION: 1. No radiographic evidence of acute cardiopulmonary process. 2. Right lung nodule is suspicious for malignancy/metastatic disease.
== END 2019-11-09 10:44 | disposition home or self-care (01) ==
LOC: RAD 10:43
PROVIDERS: ATTEND Internal Medicine Pulmonary Disease
DX: R06.00 Dyspnea, unspecified (principal); R91.1 Solitary pulmonary nodule
CPT/HCPCS: 71046

== ENCOUNTER 2019-11-29 09:16 | Outpatient (CLI) | payer MEDICARE ==
--- NOTE | 2019-11-29 11:25 | PET ---
EXAM: PET/CT HISTORY: Supraglottic malignant neoplasm TECHNIQUE: PET scanning with CT attenuation correction was performed from the vertex of the brain to the proxima l thighs following the intravenous administration of 10.5 millicuries [id number]. COMPARISON: PET/CT dated August 25, 2019 FINDINGS: Biodistribution:The biodistribution for the exam appears acceptable. Head and neck: There is appropriate background activity within the brain. The hypermetabolic supraglo ttic neck mass demonstrates increased SUV values in hypermetabolic activity. Peak activity is 15.07 with a mean activity at 10.74 whereas previously the peak activity was 11.36 with a mean activity 7.8 . Previous is seen hypermetabolic right level 3 lymph node is no longer identified. Thorax: The hypermetabolic left lower lobe metastatic lesion is stable size measuring 3.7 x 3.4 cm. T he peak activity is now 5.87 with a mean activity of 4.62. This is diminished from a previous peak activity at 10.17 and a mean activity 8.14. No new hypermetabolic pulmonary nodule is demonstrated. T he nonhypermetabolic pulmonary nodule within the right upper lobe is stable and likely benign. Scattered emphysema similar appearing. There is mild subsegmental volume loss involving both lower lo bes, left greater than right. No hypermetabolic lymphadenopathy is evident. Abdomen and pelvis: There is expected background activity within the GI and systems. No hypermetab olic mass, lymphadenopathy or ascites is present. There is stable infrarenal abdominal aortic aneurysm. Postoperative change of the right lower quadran t of the abdomen is stable. Osseous structures and skin: No hypermetabolic skin or osseous lesion is identified. IMPRESSION: Findings of mixed response to therapy. 1. There is increase hypermetabolic activity associated with the supraglottic neck mass. 2. Resolution of previously seen hypermetabolic right-sided neck lymphadenopathy. 3. Stable size but diminished hypermetabolic activity involving the left lower lobe metastatic lesion .
== END 2019-11-29 09:17 | disposition home or self-care (01) ==
LOC: PET 09:16
PROVIDERS: ATTEND Internal Medicine Hematology & Oncology
DX: C32.1 Malignant neoplasm of supraglottis (principal)
CPT/HCPCS: 78815; A9552

== ENCOUNTER 2020-01-24 13:20 | Outpatient (CLI) | payer MEDICARE ==
[~2020-01-24 13:20] MED LIST: Iopamidol 370 76% 100 ML VIAL ONE
--- NOTE | 2020-01-24 15:25 | CT ---
CT BRAIN WITH AND WITHOUT IV CONTRAST: HISTORY: Malignant neoplasm of supraglottis. Right-sided weakness. FINDINGS: There is ventricular sulcal prominence due to cortical atrophy. There are changes of chronic small-v essel ischemic disease in the periventricular white matter. No evidence of acute infarct, hemorrhage , mass, midline shift, or abnormal extraaxial fluid collections is seen. No abnormal postcontrast en hancement is noted. The bony calvarium is intact. The visualized paranasal sinuses and mastoid air cells are well aerated. IMPRESSION: No CT evidence of acute intracranial process or mass/metastatic disease. POS: MZA
== END 2020-01-24 13:21 | disposition home or self-care (01) ==
LOC: BICCT 13:20
PROVIDERS: ATTEND Internal Medicine Hematology & Oncology
DX: C32.1 Malignant neoplasm of supraglottis (principal); R53.1 Weakness; Z79.899 Other long term (current) drug therapy
CPT/HCPCS: 36415; 70470; 80053; 82248; 83615; 84100; 84436; 84443; 84550; Q9967

== ENCOUNTER 2020-02-09 09:28 | Outpatient (CLI) | payer MEDICARE ==
--- NOTE | 2020-02-09 14:54 | PET ---
Radionucleotide PET scan with CT attenuation correction HISTORY: Malignant neoplasm of supraglottis. Restaging. COMPARISON: 11/29/2019 and 08/25/2019. FINDINGS: Physiologic uptake of radiotracer throughout the enteric system and along each urinary trac t. Hypermetabolic activity associated with the supraglottic mass now shows max SUV 17.0 (previously 15.1 ). The right lower cervical level 3 lymph node has enlarged from 2.1 cm to 2.7 cm greatest length and no w shows max SUV 9.5 (previously 2.7) Solid mass in the medial aspect of the left lung lower lobe is now 3.7 cm greatest transverse diamete r where it was previously 3.2 cm, max SUV 10.1 (previously 6.8). The non-hypermetabolic 1.6 cm nodule within the right lung lower lobe is stable. Subtle area of radiotracer uptake in an area of mi ld patchy inflammation in the right lung lower lobe shows max SUV 2.5. Favored to be inflammatory rather than neoplastic. A 1.8 cm nodule/lymph node at the left upper arm along the neurovascular bundle immediately medial to the biceps muscle shows max SUV 2.4. An intermuscular 0.8 cm nodule at the posterior right upper thigh shows max SUV 2.2. Within the anterior aspect of the left upper thigh, immediately superficial to the femoral cortex, a 1.2 cm soft tissue density nodule shows max SUV 6.1 (previously 2.4). Nondiagnostic CT attenuation correction images show prominent calcification with likely stenoses of t he carotid arteries and iliac arteries. Fusiform aneurysm of the lower abdominal aorta is stable. Small hyperdense cyst projecting laterally from the cortex of the right kidney is unchanged. There ar e prominent degenerative and postoperative changes of the lumbar spine. IMPRESSION : Scintigraphic worsening of disease. Increasingly hypermetabolic activity associated with right cervic al level 3 lymph node and left lung lower lobe mass. Newly hypermetabolic small soft tissue nodules/lymph nodes within the left upper arm and each thigh ( borderline on the right). Stable hypermetabolic activity associated with the supraglottic mass. Prominent atherosclerosis.
== END 2020-02-09 09:29 | disposition home or self-care (01) ==
LOC: PET 09:28
PROVIDERS: ATTEND Internal Medicine Hematology & Oncology
DX: C32.1 Malignant neoplasm of supraglottis (principal); R91.8 Other nonspecific abnormal finding of lung field; I70.90 Unspecified atherosclerosis
CPT/HCPCS: 78815; A9552

== ENCOUNTER 2020-04-24 10:04 | Outpatient (CLI) | payer MEDICARE ==
--- NOTE | 2020-04-24 12:54 | PET ---
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 Exam request ed to evaluate for response to treatment. Patient is undergoing chemotherapy. TECHNIQUE: PET scanning with CT attenuation correction was performed from the vertex through the proximal thighs following the intravenous administration of 11 mCi [id number] in the right antecubital fossa. COMPARISON: PET CT of 02/09/2020. CORRELATION: CT pulmonary angiogram of 02/28/2020. FINDINGS: There is continued hypermetabolic activity in the supraglottic mass with a SUV of 18.3 (previously 17 ). The right lower cervical Level III lymph node demonstrates increased FDG localization with a SUV O f 15.6 (previously 9.5). No jose david hypermetabolism is seen in the chest, axilla, abdomen, or pelvis. No hypermetabolic liver, a drenal, or skeletal lesions are seen. There is continued hypermetabolic activity in the left lower lobe lung mass with a SUV of 9.3 (previo usly 3.7). The nonhypermetabolic 1.6 cm nodule in the right mid lung is stable and demonstrates no ab normal FDG localization on the current exam. The CT scan used for attenuation correction demonstrates no evidence of pleural or pericardial effusi ons or ascites. Tracheostomy tube is again seen. The 3.5 cm aneurysm of the abdominal aorta is stable . IMPRESSION: Interval increase in FDG localization in SUVs since the previous PET scan of 02/09/2020. This may eit her be due to worsening of disease or reactive changes to chemotherapy. No new lesions are seen. POS: LORI
== END 2020-04-24 10:05 | disposition home or self-care (01) ==
LOC: PET 10:04
PROVIDERS: ATTEND Internal Medicine Hematology & Oncology
DX: C32.1 Malignant neoplasm of supraglottis (principal); C78.00 Secondary malignant neoplasm of unspecified lung
CPT/HCPCS: 78815; A9552